=== PATIENT | male | born 2000 | race African-American/Black ===

== ENCOUNTER 2022-08-27 04:42 | Emergency (ER) | payer SELFPAY ==
[2022-08-27 05:08] VITALS: BP 120/70; PULSE 80; RESP 18; TEMP 98.3; BMI 22.5
[2022-08-27 06:12] LABS: BLOOD UREA NITROGEN 14.4 mg/dL (7-18); CALCIUM 9.1 mg/dL (8.5-10.1)
[2022-08-27 06:15] LABS: CREATININE 1.1 mg/dL (0.55-1.3)
[2022-08-27 06:17] LABS: BILIRUBIN,TOTAL 0.3 mg/dL (0.2-1); TOT PROT 6.9 g/dl (6.4-8.2)
[2022-08-27] MEDS ORDERED: ACETAMINOPHEN 500 MG TABLET (FP) PO ONE (07:30)
[2022-08-27] MEDS ORDERED: ACETAMINOPHEN 500 MG TABLET (FP) ONE (07:35)
[2022-08-27 07:53] LABS: BASO % 0.9 % (0-2.0); EOS % 5.4 % (0-4.5); HEMATOCRIT 37.8 % (35.4-49); HEMOGLOBIN 13.1 GM/dL (11.7-16.9); LYMPH % 39.4 % (8-40); MCH 30.1 pg (25.7-33.7); MCHC 34.7 g/dl (32.0-35.9); MEAN CELL VOLUME 86.6 fl (80-96); MEAN PLT VOLUME 8.3 fl (7.5-11.1); MONO % 8.3 % (3.8-10.2); PLATELET COUNT 223 10^3/uL (134-434); RBC 4.37 M/mm3 (4.00-5.60); RDW 12.7 % (11.9-15.9); WHITE BLOOD COUNT 6.1 K/mm3 (4.0-10.0)
== END 2022-08-27 08:25 | disposition home or self-care (01) ==
LOC: FER 04:42
DX: J02.9 Acute pharyngitis, unspecified (principal); Z20.822 Contact with and (suspected) exposure to COVID-19
CPT/HCPCS: 0241U-QW; 36415; 71045-TC-FY; 80053; 85025; 87651; 99284-25